=== PATIENT | male | born 1955 | race African-American/Black ===

== ENCOUNTER 2022-10-18 18:05 | Inpatient (IN) | payer OTHER ==
[2022-10-18] MEDS ORDERED: ACETAMINOPHEN 1000 MG/100 ML BAG IVPB ONE (19:37)
[2022-10-18] MEDS ORDERED: ONDANSETRON 4 MG/2 ML VIAL IVPUSH ONE (19:37)
[2022-10-18] MEDS ORDERED: SODIUM CHLORIDE 0.9% 500 ML INFUS.BAG IV ONE (19:37)
[2022-10-18] MEDS ORDERED: ACETAMINOPHEN INJECTION 100 ML IVPB ONE (19:49)
[2022-10-18] MEDS ORDERED: ONDANSETRON 4 MG/2 ML VIAL ONE (19:49)
[2022-10-18 20:17] LABS: VENOUS BASE EXCESS 3.2 mmol/L (-2-2); VENOUS O2 SATURATION 27.2 % (70-80); VENOUS PCO2 46.5 mmHg (38-52); VENOUS PH 7.409 (7.310-7.410)
[2022-10-18 20:40] LABS: BASO % 0.1 % (0-2.0); EOS % 0.1 % (0-4.5); HEMATOCRIT 50.3 % (35.4-49); HEMOGLOBIN 17.1 GM/dL (11.7-16.9); LYMPH % 5.4 % (8-40); MCH 31.5 pg (25.7-33.7); MCHC 34.1 g/dl (32.0-35.9); MEAN CELL VOLUME 92.5 fl (80-96); MEAN PLT VOLUME 8.6 fl (7.5-11.1); MONO % 7.5 % (3.8-10.2); NEUT % 86.9 % (42.8-82.8); PLATELET COUNT 319 10^3/uL (134-434); RBC 5.44 M/mm3 (4.00-5.60); RDW 13.7 % (11.9-15.9)
[2022-10-18 21:03] LABS: ALBUMIN 4.1 g/dl (3.4-5.0); BLOOD UREA NITROGEN 14.6 mg/dL (7-18); CALCIUM 9.3 mg/dL (8.5-10.1); MAGNESIUM 2.3 mg/dL (1.8-2.4)
[2022-10-18 21:07] LABS: BILIRUBIN,TOTAL 1.2 mg/dL (0.2-1); TOT PROT 8.2 g/dl (6.4-8.2)
[2022-10-19] MEDS ORDERED: METOCLOPRAMIDE HCL INJECTION 10 MG/2 ML VIAL IVPB ONE (00:33)
[2022-10-19] MEDS ORDERED: SODIUM CHLORIDE 0.9% 500 ML INFUS.BAG IV ONE (00:33)
[2022-10-19] MEDS ORDERED: METOCLOPRAMIDE HCL INJECTION 10 MG/2 ML VIAL ONE (00:41)
[2022-10-19] MEDS ORDERED: LIDOCAINE HCL 2% JELLY 10 ML CARTRIDGE UR ONE (00:50)
[2022-10-19] MEDS ORDERED: LIDOCAINE HCL 2% JELLY 6 ML TP ONE (00:52)
[2022-10-19] MEDS ORDERED: ONDANSETRON 4 MG/2 ML VIAL IVPUSH PRN (02:06)
[2022-10-19] MEDS ORDERED: ACETAMINOPHEN INJECTION 100 ML IVPB ONE (02:40)
[2022-10-19] MEDS: DEXTROSE 5%-0.45% SALINE 1,000 ML IV SCH (03:00)
[2022-10-19] MEDS: ACETAMINOPHEN 1000 MG/100 ML BAG IVPB PRN ×4 (03:00→21:05)
[2022-10-19 03:09] VITALS: BMI 25.9
[2022-10-19 08:59] LABS: BASO % 0.5 % (0-2.0); EOS % 0.3 % (0-4.5); HEMATOCRIT 45.3 % (35.4-49); HEMOGLOBIN 15.8 GM/dL (11.7-16.9); LYMPH % 13.2 % (8-40); MCH 32.4 pg (25.7-33.7); MCHC 34.9 g/dl (32.0-35.9); MEAN CELL VOLUME 92.9 fl (80-96); MEAN PLT VOLUME 8.5 fl (7.5-11.1); MONO % 15.3 % (3.8-10.2); NEUT % 70.7 % (42.8-82.8); PLATELET COUNT 237 10^3/uL (134-434); RBC 4.87 M/mm3 (4.00-5.60); RDW 13.5 % (11.9-15.9)
[2022-10-19 09:24] LABS: CALCIUM 8.3 mg/dL (8.5-10.1)
[2022-10-19 09:25] LABS: ALBUMIN 3.3 g/dl (3.4-5.0); BLOOD UREA NITROGEN 13.4 mg/dL (7-18)
[2022-10-19 09:29] LABS: BILIRUBIN,TOTAL 1.6 mg/dL (0.2-1); TOT PROT 6.6 g/dl (6.4-8.2)
[2022-10-19] MEDS: ENOXAPARIN NA (PORCINE) 40 MG/0.4 ML DISP.SYRIN SQ SCH (10:23)
[2022-10-20] MEDS: DEXTROSE 5%-0.45% SALINE 1,000 ML IV SCH ×2 (02:25→05:50)
[2022-10-20] MEDS: morphine SULFATE 4 MG/ML VIAL IVPUSH PRN ×3 (02:37→17:39)
[2022-10-20 08:28] LABS: BASO % 0.5 % (0-2.0); EOS % 2.6 % (0-4.5); HEMATOCRIT 41.7 % (35.4-49); HEMOGLOBIN 15.2 GM/dL (11.7-16.9); LYMPH % 23.2 % (8-40); MCH 33.2 pg (25.7-33.7); MCHC 36.5 g/dl (32.0-35.9); MEAN CELL VOLUME 91.1 fl (80-96); MEAN PLT VOLUME 8.8 fl (7.5-11.1); MONO % 17.9 % (3.8-10.2); NEUT % 55.8 % (42.8-82.8); PLATELET COUNT 246 10^3/uL (134-434); RBC 4.58 M/mm3 (4.00-5.60); RDW 13.3 % (11.9-15.9); WHITE BLOOD COUNT 3.7 K/mm3 (4.0-10.0)
[2022-10-20 08:52] LABS: CALCIUM 8.1 mg/dL (8.5-10.1)
[2022-10-20 08:53] LABS: BLOOD UREA NITROGEN 10.9 mg/dL (7-18)
[2022-10-20 08:57] LABS: BILIRUBIN,TOTAL 0.9 mg/dL (0.2-1); CREATININE 0.9 mg/dL (0.55-1.3)
[2022-10-20 08:58] LABS: TOT PROT 6.1 g/dl (6.4-8.2)
[2022-10-20] MEDS: ENOXAPARIN NA (PORCINE) 40 MG/0.4 ML DISP.SYRIN SQ SCH ×2 (09:49→09:53)
[2022-10-20] MEDS ORDERED: BUPIVACAINE HCL/PF 0.25% (2.5MG/ML) 10 ML VIAL ONE ×2 (10:57→13:51)
[2022-10-20] MEDS ORDERED: ACETAMINOPHEN INJECTION 100 ML IVPB ONE ×2 (12:23→16:04)
[2022-10-20] MEDS ORDERED: cefOXitin SODIUM 2 GM VIAL (RESTRICTED TO ID) IVPB ONE ×2 (12:25→12:34)
[2022-10-20] MEDS ORDERED: ROCURONIUM BROMIDE 50 MG/5 ML SYRINGE ONE (13:06)
[2022-10-20] MEDS ORDERED: NEOSTIGMINE METHYLSULFATE 0.5 MG/1 ML - 10 ML MDV ONE (13:37)
[2022-10-20] MEDS ORDERED: GLYCOPYRROLATE 0.2 MG/1 ML VIAL ONE ×3 (13:37)
[2022-10-20] MEDS ORDERED: POVIDONE-IODINE OINTMENT 10% - 28.4 GM TUBE ONE (14:06)
[2022-10-20] MEDS ORDERED: ACETAMINOPHEN 1000 MG/100 ML BAG IVPB PRN (14:14)
[2022-10-20] MEDS ORDERED: SODIUM CHLORIDE 1,000 ML IV SCH (14:45)
[2022-10-20] MEDS ORDERED: oxyCODONE HCL 5 MG TABLET PO PRN (14:48)
[2022-10-20] MEDS ORDERED: ONDANSETRON 4 MG/2 ML VIAL IVPUSH PRN ×2 (14:48→15:57)
[2022-10-20] MEDS ORDERED: ACETAMINOPHEN 1000 MG/100 ML BAG IVPB ONE ×2 (14:50→15:57)
[2022-10-20] MEDS: PIPERACILLIN/TAZOB 4.5 GM 4.5 GM in DEXTROSE 5%-WATER 100 ML IVPB SCH ×2 (17:10→18:05)
[2022-10-20] MEDS ORDERED: PIPERACILLIN/TAZOBACTAM 4.5 GM VIAL IVPB ONE (17:10)
[2022-10-20] MEDS: SODIUM CHLORIDE 1,000 ML IV SCH ×2 (17:45)
[2022-10-20] MEDS: IBUPROFEN 800 MG/8 ML IJ IVPB PRN (18:59)
[2022-10-20] MEDS ORDERED: CEFOXITIN SODIUM 1 GM in DEXTROSE 5%-WATER - 100 ML IVPB SCH (22:00)
[2022-10-21] MEDS: ACETAMINOPHEN 1000 MG/100 ML BAG IVPB SCH ×3 (00:13→11:01)
[2022-10-21] MEDS: PIPERACILLIN/TAZOB 4.5 GM 4.5 GM in DEXTROSE 5%-WATER 100 ML IVPB SCH ×3 (02:25→19:20)
[2022-10-21] MEDS ORDERED: SODIUM CHLORIDE 0.9% 500 ML INFUS.BAG IV ONE (02:55)
[2022-10-21] MEDS: morphine SULFATE 4 MG/ML VIAL IVPUSH PRN ×2 (08:34→19:19)
[2022-10-21 08:46] LABS: MCH 32.7 pg (25.7-33.7); MEAN CELL VOLUME 93.4 fl (80-96); MEAN PLT VOLUME 8.3 fl (7.5-11.1); PLATELET COUNT 233 10^3/uL (134-434); RDW 13.8 % (11.9-15.9); WHITE BLOOD COUNT 7.7 K/mm3 (4.0-10.0)
[2022-10-21 09:00] LABS: CALCIUM 7.2 mg/dL (8.5-10.1)
[2022-10-21 09:01] LABS: ALBUMIN 2.5 g/dl (3.4-5.0); BLOOD UREA NITROGEN 21.8 mg/dL (7-18)
[2022-10-21 09:02] LABS: CREATININE 1.6 mg/dL (0.55-1.3)
[2022-10-21 09:04] LABS: TOT PROT 5.3 g/dl (6.4-8.2)
[2022-10-21 10:53] LABS: ANISOCYTOSIS 0; HELMET CELLS 0; HOWELL-JOLLY BODIES 0; MACROCYTOSIS 0; OVALOCYTE 0; ROULEAU 0; SICKELED CELLS 0; TARGET CELLS 0; TEAR DROP CELLS 0; TOXIC GRANULATION 0
[2022-10-21] MEDS: ENOXAPARIN NA (PORCINE) 40 MG/0.4 ML DISP.SYRIN SQ SCH (11:06)
[2022-10-21] MEDS: IBUPROFEN 800 MG/8 ML IJ IVPB PRN (13:59)
[2022-10-21] MEDS: SODIUM CHLORIDE 1,000 ML IV SCH (14:01)
[2022-10-21] MEDS: ONDANSETRON 4 MG/2 ML VIAL IVPUSH PRN ×2 (16:49→23:02)
[2022-10-22] MEDS: SODIUM CHLORIDE 1,000 ML IV SCH ×3 (00:15→17:35)
[2022-10-22] MEDS: PIPERACILLIN/TAZOB 4.5 GM 4.5 GM in DEXTROSE 5%-WATER 100 ML IVPB SCH ×3 (02:40→17:48)
[2022-10-22] MEDS: IBUPROFEN 800 MG/8 ML IJ IVPB PRN (08:27)
[2022-10-22 09:00] LABS: HEMATOCRIT 40.5 % (35.4-49); HEMOGLOBIN 14.5 GM/dL (11.7-16.9); MCH 33.3 pg (25.7-33.7); MCHC 35.9 g/dl (32.0-35.9); MEAN CELL VOLUME 92.8 fl (80-96); MEAN PLT VOLUME 9.3 fl (7.5-11.1); PLATELET COUNT 280 10^3/uL (134-434); RBC 4.36 M/mm3 (4.00-5.60); RDW 13.7 % (11.9-15.9); WHITE BLOOD COUNT 8.5 K/mm3 (4.0-10.0)
[2022-10-22 09:34] LABS: ALBUMIN 2.9 g/dl (3.4-5.0); CALCIUM 8.1 mg/dL (8.5-10.1)
[2022-10-22 09:35] LABS: BLOOD UREA NITROGEN 20.4 mg/dL (7-18)
[2022-10-22 09:36] LABS: CREATININE 1.2 mg/dL (0.55-1.3)
[2022-10-22 09:38] LABS: BILIRUBIN,TOTAL 0.8 mg/dL (0.2-1); TOT PROT 6.5 g/dl (6.4-8.2)
[2022-10-22 09:39] LABS: BILIRUBIN,DIRECT 0.5 mg/dL (0.0-0.2)
[2022-10-22] MEDS: ONDANSETRON 4 MG/2 ML VIAL IVPUSH PRN ×3 (09:47→20:50)
[2022-10-22] MEDS: ENOXAPARIN NA (PORCINE) 40 MG/0.4 ML DISP.SYRIN SQ SCH ×2 (09:47→11:23)
[2022-10-22 10:23] LABS: ANISOCYTOSIS 0; HELMET CELLS 0; HOWELL-JOLLY BODIES 0; MACROCYTOSIS 0; OVALOCYTE 0; ROULEAU 0; SICKELED CELLS 0; TARGET CELLS 0; TEAR DROP CELLS 0; TOXIC GRANULATION 0
[2022-10-22] MEDS: SIMETHICONE 80 MG TAB.CHEW (FP) PO SCH ×4 (11:17→22:35)
[2022-10-22] MEDS ORDERED: ONDANSETRON 4 MG/2 ML VIAL IVPUSH ONE (14:35)
[2022-10-22] MEDS: ACETAMINOPHEN 1000 MG/100 ML BAG IVPB PRN (16:20)
[2022-10-22] MEDS: MELATONIN 5 MG TABLETS PO PRN (22:38)
[2022-10-23] MEDS: ACETAMINOPHEN 1000 MG/100 ML BAG IVPB PRN (01:04)
[2022-10-23] MEDS: SIMETHICONE 80 MG TAB.CHEW (FP) PO SCH ×5 (01:04→17:00)
[2022-10-23] MEDS: PIPERACILLIN/TAZOB 4.5 GM 4.5 GM in DEXTROSE 5%-WATER 100 ML IVPB SCH ×3 (02:15→17:00)
[2022-10-23] MEDS: ENOXAPARIN NA (PORCINE) 40 MG/0.4 ML DISP.SYRIN SQ SCH (09:53)
[2022-10-23] MEDS: SODIUM CHLORIDE 1,000 ML IV SCH (17:01)
[2022-10-24] MEDS: SIMETHICONE 80 MG TAB.CHEW (FP) PO SCH ×7 (00:01→21:47)
[2022-10-24] MEDS: PIPERACILLIN/TAZOB 4.5 GM 4.5 GM in DEXTROSE 5%-WATER 100 ML IVPB SCH ×2 (02:29→09:37)
[2022-10-24 09:18] LABS: HEMATOCRIT 37.6 % (35.4-49); MCH 31.7 pg (25.7-33.7); MCHC 34.5 g/dl (32.0-35.9); PLATELET COUNT 298 10^3/uL (134-434); RBC 4.09 M/mm3 (4.00-5.60); RDW 13.9 % (11.9-15.9); WHITE BLOOD COUNT 8.4 K/mm3 (4.0-10.0)
[2022-10-24 09:33] LABS: BLOOD UREA NITROGEN 18.5 mg/dL (7-18)
[2022-10-24] MEDS: ENOXAPARIN NA (PORCINE) 40 MG/0.4 ML DISP.SYRIN SQ SCH (09:37)
[2022-10-24 09:38] LABS: TOT PROT 5.4 g/dl (6.4-8.2)
[2022-10-24 09:39] LABS: BILIRUBIN,TOTAL 0.9 mg/dL (0.2-1)
[2022-10-24 09:56] LABS: ALBUMIN 2.3 g/dl (3.4-5.0)
[2022-10-24 11:38] LABS: ANISOCYTOSIS 0; MACROCYTOSIS 1+
[2022-10-24] MEDS ORDERED: BENZOIN/ALOE VERA/STORAX/TOLU 58 ML BOTTLE TP ONE (13:15)
[2022-10-24] MEDS ORDERED: POTASSIUM CHLORIDE ORAL LIQUID 20 MEQ/15 ML PO ONE (13:32)
[2022-10-24] MEDS: SODIUM CHLORIDE 0.45%/POT 20 MEQ/1,000 ML INFUS.BAG IV SCH (15:32)
[2022-10-24] MEDS: MEROPENEM 1 GM in DEXTROSE 5%-WATER 100 ML IVPB SCH (18:33)
[2022-10-24] MEDS: MELATONIN 5 MG TABLETS PO PRN (21:48)
[2022-10-24] MEDS ORDERED: ACETAMINOPHEN 1000 MG/100 ML BAG IVPB ONE (23:30)
[2022-10-25] MEDS: SIMETHICONE 80 MG TAB.CHEW (FP) PO SCH ×6 (02:14→22:15)
[2022-10-25] MEDS: MEROPENEM 1 GM in DEXTROSE 5%-WATER 100 ML IVPB SCH ×3 (02:15→17:28)
[2022-10-25] MEDS: SODIUM CHLORIDE 0.45%/POT 20 MEQ/1,000 ML INFUS.BAG IV SCH (09:20)
[2022-10-25] MEDS: ENOXAPARIN NA (PORCINE) 40 MG/0.4 ML DISP.SYRIN SQ SCH (09:21)
[2022-10-25 10:04] LABS: CALCIUM 8.1 mg/dL (8.5-10.1)
[2022-10-25 10:05] LABS: ALBUMIN 2.4 g/dl (3.4-5.0); BLOOD UREA NITROGEN 14.1 mg/dL (7-18)
[2022-10-25 10:08] LABS: CREATININE 0.9 mg/dL (0.55-1.3)
[2022-10-25 10:09] LABS: BILIRUBIN,TOTAL 0.7 mg/dL (0.2-1); TOT PROT 5.7 g/dl (6.4-8.2)
[2022-10-25] MEDS ORDERED: SODIUM CHLORIDE 0.45%/POT 20 MEQ/1,000 ML INFUS.BAG IV SCH (13:23)
[2022-10-25] MEDS: ACETAMINOPHEN 1000 MG/100 ML BAG IVPB PRN (18:20)
[2022-10-25] MEDS: ENOXAPARIN NA (PORCINE) 100 MG/1 ML DISP.SYRIN SQ SCH (22:14)
[2022-10-26] MEDS: MEROPENEM 1 GM in DEXTROSE 5%-WATER 100 ML IVPB SCH ×3 (01:22→17:05)
[2022-10-26] MEDS: SIMETHICONE 80 MG TAB.CHEW (FP) PO SCH ×6 (01:22→22:11)
[2022-10-26] MEDS: ENOXAPARIN NA (PORCINE) 100 MG/1 ML DISP.SYRIN SQ SCH (09:34)
[2022-10-26 09:49] LABS: HEMATOCRIT 35.7 % (35.4-49); HEMOGLOBIN 12.4 GM/dL (11.7-16.9); MCH 31.5 pg (25.7-33.7); MCHC 34.6 g/dl (32.0-35.9); MEAN CELL VOLUME 90.9 fl (80-96); MEAN PLT VOLUME 8.1 fl (7.5-11.1); PLATELET COUNT 282 10^3/uL (134-434); RBC 3.93 M/mm3 (4.00-5.60); RDW 13.4 % (11.9-15.9); WHITE BLOOD COUNT 11.2 K/mm3 (4.0-10.0)
[2022-10-26 10:21] LABS: ANISOCYTOSIS 0; CALCIUM 7.8 mg/dL (8.5-10.1); HELMET CELLS 0; HOWELL-JOLLY BODIES 0; MACROCYTOSIS 0; OVALOCYTE 0; ROULEAU 0; SICKELED CELLS 0; TARGET CELLS 0; TEAR DROP CELLS 0; TOXIC GRANULATION 0
[2022-10-26 10:22] LABS: ALBUMIN 2.2 g/dl (3.4-5.0)
[2022-10-26 10:25] LABS: CREATININE 0.8 mg/dL (0.55-1.3)
[2022-10-26 10:26] LABS: BILIRUBIN,TOTAL 0.6 mg/dL (0.2-1); TOT PROT 5.2 g/dl (6.4-8.2)
[2022-10-26] MEDS ORDERED: POTASSIUM CHLORIDE ORAL LIQUID 20 MEQ/15 ML PO ONE (11:48)
[2022-10-26] MEDS: ACETAMINOPHEN 1000 MG/100 ML BAG IVPB PRN (17:49)
[2022-10-26] MEDS: ONDANSETRON 4 MG/2 ML VIAL IVPUSH PRN (20:35)
[2022-10-26] MEDS: MELATONIN 5 MG TABLETS PO PRN (22:11)
[2022-10-27] MEDS: SIMETHICONE 80 MG TAB.CHEW (FP) PO SCH ×6 (01:12→22:28)
[2022-10-27] MEDS: MEROPENEM 1 GM in DEXTROSE 5%-WATER 100 ML IVPB SCH ×3 (01:12→16:59)
[2022-10-27 09:35] LABS: CALCIUM 8.4 mg/dL (8.5-10.1)
[2022-10-27 09:36] LABS: ALBUMIN 2.4 g/dl (3.4-5.0); BLOOD UREA NITROGEN 9.2 mg/dL (7-18)
[2022-10-27 09:39] LABS: CREATININE 0.9 mg/dL (0.55-1.3)
[2022-10-27 09:40] LABS: BILIRUBIN,TOTAL 0.6 mg/dL (0.2-1); TOT PROT 5.7 g/dl (6.4-8.2)
[2022-10-27] MEDS: ENOXAPARIN NA (PORCINE) 40 MG/0.4 ML DISP.SYRIN SQ SCH (10:10)
[2022-10-27 10:21] LABS: HEMATOCRIT 37.2 % (35.4-49); HEMOGLOBIN 12.8 GM/dL (11.7-16.9); MCH 31.5 pg (25.7-33.7); MCHC 34.4 g/dl (32.0-35.9); MEAN CELL VOLUME 91.6 fl (80-96); PLATELET COUNT 310 10^3/uL (134-434); RBC 4.06 M/mm3 (4.00-5.60); RDW 13.5 % (11.9-15.9); WHITE BLOOD COUNT 17.9 K/mm3 (4.0-10.0)
[2022-10-27 10:55] LABS: ANISOCYTOSIS 0; HELMET CELLS 0; HOWELL-JOLLY BODIES 0; MACROCYTOSIS 0; OVALOCYTE 0; ROULEAU 0; SICKELED CELLS 0; TARGET CELLS 0; TEAR DROP CELLS 0; TOXIC GRANULATION 0
[2022-10-27] MEDS: MELATONIN 5 MG TABLETS PO PRN (22:28)
[2022-10-28] MEDS: SIMETHICONE 80 MG TAB.CHEW (FP) PO SCH ×6 (02:24→22:00)
[2022-10-28] MEDS: MEROPENEM 1 GM in DEXTROSE 5%-WATER 100 ML IVPB SCH ×4 (02:24→17:19)
[2022-10-28] MEDS: ENOXAPARIN NA (PORCINE) 40 MG/0.4 ML DISP.SYRIN SQ SCH (10:38)
[2022-10-28 15:42] LABS: HEMATOCRIT 36.8 % (35.4-49); HEMOGLOBIN 12.9 GM/dL (11.7-16.9); MCH 31.7 pg (25.7-33.7); MEAN CELL VOLUME 90.7 fl (80-96); MEAN PLT VOLUME 8.3 fl (7.5-11.1); PLATELET COUNT 299 10^3/uL (134-434); RBC 4.06 M/mm3 (4.00-5.60); RDW 13.5 % (11.9-15.9); WHITE BLOOD COUNT 15.7 K/mm3 (4.0-10.0)
[2022-10-29] MEDS: MEROPENEM 1 GM in DEXTROSE 5%-WATER 100 ML IVPB SCH ×2 (01:50→11:03)
[2022-10-29] MEDS: SIMETHICONE 80 MG TAB.CHEW (FP) PO SCH ×6 (01:50→22:21)
[2022-10-29 07:59] LABS: BASO % 0.3 % (0-2.0); EOS % 1.5 % (0-4.5); HEMATOCRIT 36.6 % (35.4-49); HEMOGLOBIN 12.6 GM/dL (11.7-16.9); LYMPH % 4.9 % (8-40); MCH 31.2 pg (25.7-33.7); MCHC 34.4 g/dl (32.0-35.9); MEAN CELL VOLUME 90.6 fl (80-96); MEAN PLT VOLUME 8.4 fl (7.5-11.1); MONO % 5.8 % (3.8-10.2); NEUT % 87.5 % (42.8-82.8); PLATELET COUNT 303 10^3/uL (134-434); RBC 4.04 M/mm3 (4.00-5.60); RDW 13.4 % (11.9-15.9); WHITE BLOOD COUNT 14.4 K/mm3 (4.0-10.0)
[2022-10-29 08:20] LABS: ALBUMIN 2.3 g/dl (3.4-5.0); BLOOD UREA NITROGEN 6.1 mg/dL (7-18)
[2022-10-29 08:23] LABS: CREATININE 0.8 mg/dL (0.55-1.3)
[2022-10-29 08:25] LABS: BILIRUBIN,TOTAL 0.9 mg/dL (0.2-1); TOT PROT 5.6 g/dl (6.4-8.2)
[2022-10-29] MEDS: ENOXAPARIN NA (PORCINE) 40 MG/0.4 ML DISP.SYRIN SQ SCH (11:02)
[2022-10-29] MEDS ORDERED: POTASSIUM CHLORIDE ORAL LIQUID 20 MEQ/15 ML PO ONE ×4 (12:41→22:30)
[2022-10-29] MEDS ORDERED: ACETAMINOPHEN 500 MG TABLET (FP) PO PRN (12:42)
[2022-10-30] MEDS: MELATONIN 5 MG TABLETS PO PRN (01:53)
[2022-10-30] MEDS: SIMETHICONE 80 MG TAB.CHEW (FP) PO SCH ×5 (01:53→18:29)
[2022-10-30 09:50] LABS: BASO % 0.3 % (0-2.0); EOS % 1.2 % (0-4.5); HEMATOCRIT 35.7 % (35.4-49); HEMOGLOBIN 12.6 GM/dL (11.7-16.9); LYMPH % 7.3 % (8-40); MCH 32.2 pg (25.7-33.7); MCHC 35.2 g/dl (32.0-35.9); MEAN CELL VOLUME 91.4 fl (80-96); MEAN PLT VOLUME 8.3 fl (7.5-11.1); MONO % 5.8 % (3.8-10.2); NEUT % 85.4 % (42.8-82.8); PLATELET COUNT 342 10^3/uL (134-434); RDW 13.9 % (11.9-15.9); WHITE BLOOD COUNT 11.3 K/mm3 (4.0-10.0)
[2022-10-30] MEDS ORDERED: AMOX TR/POT CLAV 875MG/125MG TABLETS (FP) PO SCH (10:01)
[2022-10-30 10:09] LABS: ALBUMIN 2.2 g/dl (3.4-5.0); BLOOD UREA NITROGEN 6.4 mg/dL (7-18)
[2022-10-30 10:10] LABS: CALCIUM 8.3 mg/dL (8.5-10.1); MAGNESIUM 1.9 mg/dL (1.8-2.4)
[2022-10-30 10:11] LABS: PHOSPHOROUS 2.5 mg/dL (2.5-4.9)
[2022-10-30 10:12] LABS: CREATININE 0.8 mg/dL (0.55-1.3)
[2022-10-30 10:13] LABS: BILIRUBIN,TOTAL 0.6 mg/dL (0.2-1); TOT PROT 5.5 g/dl (6.4-8.2)
[2022-10-30] MEDS: ENOXAPARIN NA (PORCINE) 40 MG/0.4 ML DISP.SYRIN SQ SCH (10:52)
[2022-10-30] MEDS: AMOX TR/POT CLAV 875MG/125MG TABLETS (FP) PO SCH ×2 (15:41→18:28)
[2022-10-30 20:13] VITALS: BP 138/76; PULSE 78; RESP 20; TEMP 98.1
== END 2022-10-30 17:50 | disposition home or self-care (01) | DRG 335 ==
LOC: JER 18:05 → JERBED 10-19 00:32 → J7W 10-19 02:51 → J8W 10-20 17:32 → UNDODISIN 10-30 17:53
PROVIDERS: ADMIT Internal Medicine; ATTEND Internal Medicine
PROC: 0WQF0ZZ Repair Abdominal Wall, Open Approach (ICD-10-PCS; 2022-10-20)
PROC: 0WPF0JZ Removal of Synthetic Substitute from Abdominal Wall, Open Approach (ICD-10-PCS; 2022-10-20)
PROC: 0WJF4ZZ Inspection of Abdominal Wall, Percutaneous Endoscopic Approach (ICD-10-PCS; 2022-10-20)
PROC: 0DNU0ZZ Release Omentum, Open Approach (ICD-10-PCS; principal; 2022-10-20 10:45)
DX: K56.50 Intestinal adhesions [bands], unspecified as to partial versus complete obstruction (principal); J18.9 Pneumonia, unspecified organism; N17.9 Acute kidney failure, unspecified; J95.89 Other postprocedural complications and disorders of respiratory system, not elsewhere classified; K91.89 Other postprocedural complications and disorders of digestive system; K42.9 Umbilical hernia without obstruction or gangrene; E78.5 Hyperlipidemia, unspecified; K46.9 Unspecified abdominal hernia without obstruction or gangrene; Z53.31 Laparoscopic surgical procedure converted to open procedure; E87.6 Hypokalemia; Y83.8 Other surgical procedures as the cause of abnormal reaction of the patient, or of later complication, without mention of misadventure at the time of the procedure; R09.02 Hypoxemia
CPT/HCPCS: 0241U-QW; 36415; 71045-TC-FY; 71250-TC; 71275-TC; 74019-TC-FY; 74177-TC; 80048; 80053; 82248; 82803; 82962; 83605; 83690; 83735; 84100; 85025; 85027; 85379; 86850; 86900; 86901; 88302-TC; 88304-TC; 93005; 93010; 94010; 94760; 97116-GP; 97161-GP; 99285-25; J3480; Q9967

== ENCOUNTER 2022-11-02 17:06 | Emergency (ER) | payer OTHER ==
[2022-11-02 17:43] VITALS: BP 137/88; PULSE 82; RESP 16; TEMP 98; BMI 26.6
== END 2022-11-02 21:01 | disposition home or self-care (01) ==
LOC: JERFT 17:06
DX: Z48.00 Encounter for change or removal of nonsurgical wound dressing (principal)
CPT/HCPCS: 99282-25

== ENCOUNTER 2024-02-08 04:23 | Day surgery (SDC) | payer OTHER ==
[2024-02-07 11:10] VITALS: BMI 25.2
[2024-02-08 06:28] VITALS: BP 128/88; PULSE 68; RESP 20; TEMP 98.6
[2024-02-08 07:20] LABS: INR 0.97 (0.83-1.09)
== END 2024-02-08 12:32 | disposition home or self-care (01) ==
LOC: JASU-SURG 04:23
PROVIDERS: ATTEND Surgery
DX: Z53.8 Procedure and treatment not carried out for other reasons (principal)
CPT/HCPCS: 36415; 85610; 93005; 93010

== ENCOUNTER 2024-02-11 04:29 | Day surgery (SDC) | payer OTHER ==
[2024-02-10 14:04] VITALS: BMI 25.2
[2024-02-11] MEDS ORDERED: MIDAZOLAM HCL 2 MG/2 ML SINGLE DOSE VIAL ONE (07:53)
[2024-02-11] MEDS ORDERED: PROPOFOL 20 ML ONE ×2 (07:53→09:09)
[2024-02-11] MEDS: ONABOTULINUMTOXINA 200 UNIT/VIAL VIAL IM ONE (08:34)
[2024-02-11] MEDS ORDERED: ONDANSETRON 4 MG/2 ML VIAL IVPUSH PRN (09:21)
[2024-02-11] MEDS ORDERED: oxyCODONE HCL 5 MG TABLET PO PRN (09:21)
[2024-02-11] MEDS: LACTATED RINGERS SOLUTION 1,000 ML IV SCH (09:30)
[2024-02-11] MEDS ORDERED: ACETAMINOPHEN INJECTION 100 ML IVPB ONE (09:31)
[2024-02-11] MEDS: ACETAMINOPHEN 1000 MG/100 ML BAG IVPB PRN (09:34)
[2024-02-11] MEDS: ONABOTULINUMTOXINA 200 UNIT/VIAL VIAL NR ONE (09:37)
[2024-02-11 10:06] VITALS: TEMP 98.3
[2024-02-11 11:06] VITALS: BP 118/71; PULSE 63; RESP 20
== END 2024-02-11 11:30 | disposition home or self-care (01) ==
LOC: JASU-SURG 04:29
PROVIDERS: ATTEND Surgery
PROC: 3E023GC Introduction of Other Therapeutic Substance into Muscle, Percutaneous Approach (ICD-10-PCS; 2024-02-11)
PROC: 015M3ZZ Destruction of Abdominal Sympathetic Nerve, Percutaneous Approach (ICD-10-PCS; principal; 2024-02-11 08:00)
DX: K43.9 Ventral hernia without obstruction or gangrene (principal)
CPT/HCPCS: 94760; J0131; J0585

== ENCOUNTER 2024-03-22 04:20 | Day surgery (SDC) | payer OTHER ==
[2024-03-22] MEDS ORDERED: BUPIVACAINE HCL/PF 0.25% (2.5MG/ML) 10 ML VIAL ONE (11:42)
[2024-03-22] MEDS ORDERED: MIDAZOLAM HCL 2 MG/2 ML SINGLE DOSE VIAL ONE (11:53)
[2024-03-22] MEDS ORDERED: ROCURONIUM BROMIDE 50 MG/5 ML SYRINGE ONE ×2 (11:53→13:04)
[2024-03-22] MEDS ORDERED: PROPOFOL 20 ML ONE (11:53)
[2024-03-22] MEDS ORDERED: ONDANSETRON 4 MG/2 ML VIAL IVPUSH PRN ×2 (12:34→17:55)
[2024-03-22] MEDS ORDERED: oxyCODONE HCL 5 MG TABLET PO PRN ×2 (12:34)
[2024-03-22] MEDS ORDERED: LACTATED RINGERS SOLUTION 1,000 ML IV SCH (12:45)
[2024-03-22] MEDS: ceFAZolin SODIUM 1 GM VIAL IVPB ONE ×2 (12:57→12:58)
[2024-03-22] MEDS ORDERED: DEXAMETHASONE SOD PHOSPHATE 4 MG/1 ML VIAL ONE (13:09)
[2024-03-22] MEDS ORDERED: ONDANSETRON 4 MG/2 ML VIAL ONE ×2 (13:09)
[2024-03-22] MEDS ORDERED: KETOROLAC TROMETHAMINE 30 MG/1 ML VIAL ONE (13:09)
[2024-03-22] MEDS ORDERED: HYDROmorphone HCl 2 MG/ML VIAL ONE (13:11)
[2024-03-22] MEDS ORDERED: ceFAZolin SODIUM 1 GM VIAL ONE ×2 (15:13)
[2024-03-22] MEDS ORDERED: SUGAMMADEX SODIUM 200 MG/2 ML VIAL ONE (16:02)
[2024-03-22] MEDS ORDERED: ADENOSINE 6 MG/2 ML VIAL IVPUSH ONE (17:39)
[2024-03-22] MEDS: IBUPROFEN 600 MG TABLET (FP) PO SCH (17:55)
[2024-03-22] MEDS ORDERED: ACETAMINOPHEN 1000 MG/100 ML BAG IVPB ONE (19:00)
[2024-03-22] MEDS: LACTATED RINGERS SOLUTION 1,000 ML IV SCH (19:28)
[2024-03-22 20:40] VITALS: BMI 26.0
[2024-03-22] MEDS: oxyCODONE HCL 5 MG TABLET PO PRN (21:07)
[2024-03-22] MEDS: ACETAMINOPHEN 500 MG TABLET (FP) PO SCH (22:55)
[2024-03-23] MEDS: LOSARTAN POTASSIUM 50 MG TABLET PO SCH (09:23)
[2024-03-23] MEDS: DOCUSATE SODIUM 100 MG CAPSULE (FP) PO PRN (09:25)
[2024-03-23] MEDS ORDERED: LOSARTAN POTASSIUM 25 MG TABLET PO SCH (10:00)
[2024-03-23 10:12] LABS: BASO % 0.5 % (0-2.0); HEMOGLOBIN 13.9 GM/dL (11.7-16.9); LYMPH % 7.7 % (8-40); MCH 32.1 pg (25.7-33.7); MCHC 33.9 g/dl (32.0-35.9); MEAN CELL VOLUME 94.7 fl (80-96); MEAN PLT VOLUME 8.6 fl (7.5-11.1); MONO % 7.3 % (3.8-10.2); NEUT % 84.5 % (42.8-82.8); PLATELET COUNT 234 10^3/uL (134-434); RBC 4.33 M/mm3 (4.00-5.60); RDW 13.8 % (11.9-15.9); WHITE BLOOD COUNT 9.9 K/mm3 (4.0-10.0)
[2024-03-23 10:22] LABS: POTASSIUM 4.2 mmol/L (3.5-5.1)
[2024-03-23 10:25] LABS: CALCIUM 8.3 mg/dL (8.5-10.1)
[2024-03-23 10:26] LABS: BLOOD UREA NITROGEN 15.6 mg/dL (7-18)
[2024-03-23 14:42] VITALS: RESP 18
[2024-03-23 17:11] VITALS: BP 102/71; PULSE 95; TEMP 98.4
[2024-03-23] MEDS ORDERED: ROSUVASTATIN CA 10 MG TABLET PO SCH ×2 (22:00)
== END 2024-03-23 18:57 | disposition home or self-care (01) ==
LOC: JASU-SURG 04:20 → UNDOADMIN 16:17 → J2C 16:17 → J8W 19:43 → J2C 19:43 → J8W 03-23 14:05 → JASU-SURG 03-23 18:57
PROVIDERS: ATTEND Surgery
PROC: 0WUF0JZ Supplement Abdominal Wall with Synthetic Substitute, Open Approach (ICD-10-PCS; principal; 2024-03-22 11:00)
DX: K43.2 Incisional hernia without obstruction or gangrene (principal)
CPT/HCPCS: 36415; 80048; 85025; 86850; 86900; 86901; 94010; 94760; 97116-GP; 97161-GP; C1781